=== PATIENT | male | born 2000 | race Two or more races ===

== ENCOUNTER 2022-05-09 01:57 | Emergency (ER) | payer SELFPAY ==
[2022-05-09] MEDS ORDERED: Ondansetron 4 MG Tab.DIS PO ONE (02:25)
== END 2022-05-09 03:14 | disposition home or self-care (01) ==
LOC: JD.ED 01:57
DX: N20.0 Calculus of kidney (principal); Z87.442 Personal history of urinary calculi
CPT/HCPCS: 74176; 81001; 99284; A9270; 99283